=== PATIENT | male | born 1965 | race Caucasian/White ===

== ENCOUNTER 2018-01-12 11:28 | Outpatient (CLI) | payer OTHER | END 2018-01-12 11:29 | disposition home or self-care (01) | LOC: BICMRI 11:28 | PROVIDERS: ATTEND Family Medicine | DX: S29.019D Strain of muscle and tendon of unspecified wall of thorax, subsequent encounter (principal); M54.6 Pain in thoracic spine; M47.894 Other spondylosis, thoracic region; M48.04 Spinal stenosis, thoracic region; S29.012D Strain of muscle and tendon of back wall of thorax, subsequent encounter | CPT/HCPCS: 72146 ==

== ENCOUNTER 2018-03-20 13:47 | Outpatient (CLI) | payer OTHER | END 2018-03-20 13:48 | disposition home or self-care (01) | LOC: BICCT 13:47 | PROVIDERS: ATTEND Neurological Surgery | DX: M51.26 Other intervertebral disc displacement, lumbar region (principal); M48.02 Spinal stenosis, cervical region; M99.81 Other biomechanical lesions of cervical region; M54.5 Low back pain; M54.2 Cervicalgia | CPT/HCPCS: 72125; 72131 ==

== ENCOUNTER 2018-05-22 12:57 | Outpatient (CLI) | payer OTHER ==
[2018-05-22 13:54] LABS: #Eosinphils 0.1 thou/uL (0.0-0.7); #Lymphocytes 1.4 thou/uL (1.20-3.40); #Monocytes 0.6 thou/uL (0.11-0.59); #Neutrophils 3.6 thou/uL (1.40-6.50); %Basophils 0.4 % (0.0-1.0); %Eosinophils 1.9 % (0.0-10.0); %Lymphocytes 23.9 % (21.0-51.0); %Monocytes 10.6 % (0.0-10.0); %Neutrophils 63.2 % (42.0-75.0); Hemoglobin 14.3 g/dL (14.0-18.0); Mean Corpuscular HGB CONC 35.8 g/dL (32.0-36.0); Mean Corpuscular Hemoglobin 31.8 pg (27.0-31.0); Mean Corpuscular Volume 88.7 fL (78.0-98.0); Mean Platelet Volume 7.8 fL (7.4-10.4); Platelet Count 204 thou/uL (130-400); RBC Distribution Width 10.7 % (11.5-14.5); White Blood Cell (WBC) Count 5.7 thou/uL (4.8-10.8)
[2018-05-22 14:17] LABS: Anion Gap 15 mmol/L (10-20); BUN (Urea Nitrogen) 21 mg/dL (8.4-25.7); Calc. Creatinine Clearance 0 mL/min (70-130); Calcium 9.3 mg/dL (7.8-10.44); Carbon Dioxide 23 mmol/L (22-29); Chloride 106 mmol/L (98-107); Estimated GFR-MDRD 88; Glucose 96 mg/dL (70-105); Potassium 4.5 mmol/L (3.5-5.1); Sodium 139 mmol/L (136-145)
--- NOTE | 2018-05-24 23:18 | EKG ---
Test Reason : Blood Pressure : / mmHG Vent. Rate : 070 BPM Atrial Rate : 070 BPM P-R Int : 138 ms QRS Dur : 076 ms QT Int : 384 ms P-R-T Axes : 030 032 005 degrees QTc Int : 414 ms Normal sinus rhythm Normal ECG No previous ECGs available Confirmed by Benji MCCORMACK ([id number]) on 05/24/2018 11:18:09 PM Referred By: MAGAN Confirmed By:Benji MCCORMACK
== END 2018-05-22 12:58 | disposition home or self-care (01) ==
LOC: LABBT 12:57
PROVIDERS: ATTEND Specialist
DX: Z01.818 Encounter for other preprocedural examination (principal); K42.9 Umbilical hernia without obstruction or gangrene
CPT/HCPCS: 80048; 85025; 93005; 93010

== ENCOUNTER 2018-05-29 05:47 | Day surgery (SDC) | payer OTHER ==
--- NOTE | 2018-05-22 12:56 | HP ---
HISTORY OF PRESENT ILLNESS: Sadiq Garzon is a 52-year-old male patient with an umbilical hernia for the last several months, increasingly bothersome. This has been present for six months. He is refe rred by Dr. Rowley. Plan is for robotic mesh repair of umbilical hernia as an outpatient. He is thanh rgic to PENICILLIN. He understands the risk of infection, bleeding, reoperation, recurrence, and con sents. ALLERGIES: PENICILLIN. TOBACCO: None. ALCOHOL: None. MEDICATIONS: None routinely. PAST SURGICAL HISTORY: Left inguinal hernia repair 2-3 years ago. He has had a colonoscopy in 2017. PAST MEDICAL HISTORY: Noncontributory. SOCIAL HISTORY: He works for [employer] and [employer]. He drives, does some light lifting on occasion. FAMILY HISTORY: Father , high blood pressure, MVA. Mother , hypertension and stroke . No other significant family history. REVIEW OF SYSTEMS: [place] point noncontributory. SOCIAL HISTORY: Tobacco none. Alcohol none. MEDICATIONS: None. PHYSICAL EXAMINATION: VITAL SIGNS: 190 pounds, 70 inches, 142/88, 87, 98.4 degrees. HEAD, EARS, EYES, NOSE, AND THROAT: Unremarkable. LUNGS: Clear to auscultation. CARDIAC: Regular rate and rhythm. No murmur or gallop. ABDOMEN: Soft, nontender. Umbilical hernia present, reducible. Groins without hernias. EXTREMITIES: Unremarkable. No ankle edema. NEUROLOGIC: Intact. Cranial nerves intact. LYMPH NODES: No lymphadenopathy in neck, groins, or axilla. ASSESSMENT: Umbilical hernia. PLAN: Robotic mesh repair, outpatient. Risks and benefits were explained, he consents.
[2018-05-22 13:11] VITALS: BMI 26.5
[2018-05-29] MEDS ORDERED: Fentanyl 100 MCG/2 ML VIAL ONE (06:33)
[2018-05-29] MEDS ORDERED: Bupivacaine/Epinephrine 0.25% 30 ML VIAL ONE (06:44)
[2018-05-29] MEDS ORDERED: Levofloxacin 500 mg/D5W 100 ml Premix Bag ONE (07:07)
[2018-05-29] MEDS ORDERED: Ketorolac Tromethamine 30 MG/ML VIAL ONE (07:07)
--- NOTE | 2018-05-29 10:12 | OP ---
DATE OF PROCEDURE: 05/29/2018 PREOPERATIVE DIAGNOSIS: Umbilical hernia. POSTOPERATIVE DIAGNOSIS: Umbilical hernia. PROCEDURE: Robotic mesh repair of umbilical hernia, 11 cm mesh cut down to 8 cm Ventralight with raul sure of the primary fascial defect. SURGEON: Ned Almodovar M.D. ANESTHESIA: General. Local 0.5% Marcaine with epinephrine, 30 mL. PROCEDURE: The patient was taken to the operating room under general anesthesia, abdomen was clipped of hair, prepared with ChloraPrep, draped in routine fashion. Bilateral far lateral subcostal incis ion made and pneumoperitoneum to 15 mmHg obtained with the Veress needle, replacing it with 8 mm port s. Left subxiphoid incision made and 11 mm balloon long port placed and balloon inflated and positio maggy and the robotic scope placed and the robot docked. Then robotic repair of umbilical hernia undert aken, taking down using hot scissors to take down the periumbilical preperitoneal fat, skeletonizing the fascia. The hernia defect closed with continuous suture of 0 V-Loc suture. Once this was comple drake, the mesh then was placed with the visceral coated side against the viscera secured to the abdomi nal wall with a temporary needle and then circumferential suture of 2-0 V-Loc performed, securing the mesh to the abdominal wall. The sutures removed, needle counts were correct. Under robotic laparos copic incision the 11 mm port site closed with 0 Vicryl GraNee needle. Pneumoperitoneum reduced. Al l instruments removed and all skin incisions approximated with interrupted subdermal 4-0 Monocryl and DermaGlue applied.
[2018-05-29] MEDS ORDERED: PROPOFOL 200 MG/20 ML VIAL ONE (13:11)
[2018-05-29] MEDS ORDERED: PHENYLEPHRINE-NS 100 MCG/ML 10 ML SYRINGE ONE (13:11)
[2018-05-29] MEDS ORDERED: Dexamethasone 20 MG/5 ML VIAL ONE (13:11)
[2018-05-29] MEDS ORDERED: Glycopyrrolate 0.2 MG/ML 5 ML SYRINGE ONE (13:11)
[2018-05-29] MEDS ORDERED: Lidocaine 1% PF 5 ML VIAL ONE (13:11)
[2018-05-29] MEDS ORDERED: Ondansetron HCl/PF 4 MG/2 ML Vial ONE (13:11)
== END 2018-05-29 12:14 | disposition home or self-care (01) ==
LOC: SDC 05:47
PROVIDERS: ATTEND Specialist
PROC: 0WUF4JZ Supplement Abdominal Wall with Synthetic Substitute, Percutaneous Endoscopic Approach (ICD-10-PCS; principal; 2018-05-29)
DX: K42.9 Umbilical hernia without obstruction or gangrene (principal); Z79.899 Other long term (current) drug therapy; Z88.0 Allergy status to penicillin; Z98.890 Other specified postprocedural states
CPT/HCPCS: C1781; J0131; J1100; J1885; J1956; J2001; J2405; J2704; J3010

== ENCOUNTER 2024-04-30 09:18 | Outpatient (CLI) | payer OTHER | END 2024-04-30 09:19 | disposition home or self-care (01) | LOC: SCSRAD 09:18 | PROVIDERS: ATTEND Family Medicine | DX: M25.551 Pain in right hip (principal); M25.552 Pain in left hip; M16.11 Unilateral primary osteoarthritis, right hip ==